=== PATIENT | female | born 1980 | race Caucasian/White ===

== ENCOUNTER 2020-11-25 18:02 | Day surgery (SDC) | payer SELFPAY ==
[2020-11-21 15:02] VITALS: BMI 31.8
[~2020-11-25 18:02] MED LIST: BACITRACIN 15 GM TUBE TOPICAL OINTMENT ONE; BUPIVACAINE HCL/PF 0.25% (2.5MG/ML) 10 ML VIAL IJ ONE; BUPIVACAINE HCL/PF 0.25% (2.5MG/ML) 10 ML VIAL ONE; BUPIVACAINE LIPOSOME/PF (EXPAREL) 266 MG/20 ML VIAL NR ONE; BUPIVACAINE LIPOSOME/PF (EXPAREL) 266 MG/20 ML VIAL ONE; DEXAMETHASONE SOD PHOSPHATE 4 MG/1 ML VIAL ONE; EPINEPHrine/PF 1 MG/1 ML (1:1,000) AMPULE ONE; GLYCOPYRROLATE 0.2 MG/1 ML VIAL ONE; HEPARIN NA (PORCINE) 5,000 UNITS/ML 1ML VIAL ONE; HEPARIN NA (PORCINE) 5,000 UNITS/ML 1ML VIAL SQ ONE; KETOROLAC TROMETHAMINE 30 MG/1 ML VIAL ONE; LIDOCAINE HCL 2% JELLY (5 ML/TUBE) ONE; MIDAZOLAM HCL 2 MG/2 ML SINGLE DOSE VIAL ONE; MORPHINE SULFATE 2 MG/ML VIAL IVPUSH PRN; NEOSTIGMINE METHYLSULFATE 0.5 MG/1 ML - 10 ML MDV ONE; ONDANSETRON 4 MG/2 ML VIAL IVPB PRN; ONDANSETRON 4 MG/2 ML VIAL IVPUSH PRN; ONDANSETRON 4 MG/2 ML VIAL ONE; PROMETHAZINE HCL 25 MG/1 ML VIAL IVPUSH PRN; PROPOFOL 20 ML ONE; SEVOFLURANE 250 ML BTL ONE; ceFAZolin SODIUM 1 GM VIAL ONE; fentaNYL CITRATE 250 MCG/5 ML VIAL ONE; oxyCODONE HCL 5 MG TABLET PO PRN
[2020-11-25] MEDS ORDERED: LACTATED RINGERS SOLUTION 1,000 ML IV SCH (18:15)
[2020-11-25] MEDS: CEFAZOLIN 1 GM in DEXTROSE 5%-WATER - 1 GM/50 ML IVPB IVPB SCH (23:52)
[2020-11-26] MEDS ORDERED: DEXTROSE 5%-WATER - 50 ML IVPB ONE ×2 (00:49→05:13)
[2020-11-26] MEDS ORDERED: ceFAZolin SODIUM 1 GM VIAL ONE ×2 (00:49→05:13)
[2020-11-26] MEDS: CEFAZOLIN 1 GM in DEXTROSE 5%-WATER - 1 GM/50 ML IVPB IVPB SCH (05:20)
[2020-11-26 06:41] VITALS: TEMP 98.2
[2020-11-26 06:42] VITALS: BP 95/48; PULSE 57
[2020-11-26] MEDS ORDERED: HEPARIN NA (PORCINE) 5,000 UNITS/ML 1ML VIAL SQ SCH (08:00)
== END 2020-11-26 10:43 | disposition home or self-care (01) ==
LOC: FASUSAT 18:02 → FASU 19:26 → FM/S 19:26 → FASUSAT 11-26 10:43
PROVIDERS: ATTEND Plastic Surgery
PROC: 0J080ZZ Alteration of Abdomen Subcutaneous Tissue and Fascia, Open Approach (ICD-10-PCS; principal; 2020-11-25 13:49)
PROC: 0J083ZZ Alteration of Abdomen Subcutaneous Tissue and Fascia, Percutaneous Approach (ICD-10-PCS; 2020-11-25 13:49)
DX: Z41.1 Encounter for cosmetic surgery (principal); E65 Localized adiposity; K43.9 Ventral hernia without obstruction or gangrene
CPT/HCPCS: 84703; 88300-TC; 94760; J1644